=== PATIENT | male | born 1970 | race Caucasian/White ===

== ENCOUNTER 2019-10-24 10:07 | Outpatient (CLI) | payer BC, SELFPAY ==
--- NOTE | 2019-10-24 10:16 | MR_ITS ---
WS: [id number] MRI CERVICAL SPINE NONCONTRAST TECHNIQUE: Sagittal T1, T2 and STIR imaging. Axial T2, gradient, and fiesta imaging. CLINICAL INFORMATION: CERVICAL DISC HERNIATION;DEGEREATION INTERVERTEBRAL DISC COMPARISON: June 17, 2013 FINDINGS: Straightening of the normal cervical lordosis. Mild disc bulging worse at C2-3 C5-6 and C6-7. Cord si gnal is normal. C2-C3: Right pericentral disc osteophyte protrusion. Slight contact of the right ventral cervical cor d. Spinal canal is patent. Foramen are patent. C3-C4: Mild disc osteophyte complex. Mild facet arthropathy. Mild left and no significant right vahid inal narrowing. C4-C5: Tiny central disc protrusion. Mild facet arthropathy. Spinal canal and foramen are patent. C5-C6: Mild disc osteophyte complex with endplate ridging. Moderate bilateral bony foraminal narrowin g. Mild central canal stenosis. C6-C7: Disc osteophyte complex with endplate ridging. Broad-based central protrusion. Moderate bilate ral bony foraminal narrowing right greater than left. Mild to moderate facet arthropathy. C7-T1: No significant disc bulging. Spinal canal and foramen are patent Visualized brain stem structures: Normal. Prevertebral soft tissues: Normal. MR/MR cervical spin wo con* [id number] IMPRESSION: 1. Mild cervical curve. No high-grade central canal stenosis. Cord signal is n ormal. 2. Central disc osteophyte protrusion C6-C7 with mild central canal stenosis. Moderate bilateral bony foraminal narrowing at this level. This is progressed s jasen 2012. 3. Mild disc osteophyte complex with endplate ridging C5-C6. Mild central edwin l stenosis. Moderate bilateral bony foraminal narrowing. 4. Right pericentral disc osteophyte protrusion C2-3 slight contact of the rig ht ventral cervical cord. 5. Mild left C3-4 foraminal narrowing. 6. Mild facet arthropathy C4-C5, C5-C6, and C6-C7.
== END 2019-10-24 10:08 | disposition home or self-care (01) ==
LOC: RADSHAW 10:09
PROVIDERS: Family Provider Physician Assistant Medical; PCP Physician Assistant Medical; Visit Provider Nurse Practitioner Family
DX: M50.30 Other cervical disc degeneration, unspecified cervical region (principal); M47.892 Other spondylosis, cervical region; M50.223 Other cervical disc displacement at C6-C7 level; M48.02 Spinal stenosis, cervical region; M50.20 Other cervical disc displacement, unspecified cervical region
CPT/HCPCS: 72141